=== PATIENT | male | born 1990 | race Caucasian/White ===

== ENCOUNTER → 2018-11-17 | Outpatient (CLI) | payer MEDICAID, OTHER | LOC: M OUTALCOH 13:06 | PROVIDERS: ATTEND Psychiatry & Neurology Psychiatry | DX: F11.20 Opioid dependence, uncomplicated (principal) ==

== ENCOUNTER 2019-11-02 22:49 | Emergency (ER) | payer OTHER ==
[~2019-11-02] VITALS: Ht 177.8 cm; Wt 90.3 kg
[2019-11-02 22:49] VITALS: BP 127/85
[2019-11-02] MEDS ORDERED: SUBO12MI SL (23:00)
[2019-11-02] MEDS ORDERED: BACT800T5 PO (23:55)
[2019-11-03] MEDS ORDERED: BACTRIM 160MG/800MG DS TAB PO ONE
== END 2019-11-03 00:08 | disposition home or self-care (01) ==
LOC: M ED 22:49
DX: L03.115 Cellulitis of right lower limb (principal); F19.10 Other psychoactive substance abuse, uncomplicated; F17.200 Nicotine dependence, unspecified, uncomplicated